=== PATIENT | male | born 1945 | race Caucasian/White ===

== ENCOUNTER 2020-12-01 04:24 | Outpatient (CLI) | payer OTHER | END 2020-12-01 04:25 | disposition home or self-care (01) | LOC: PPH VACUNA 04:24 | PROVIDERS: ATTEND Emergency Medicine Pediatric Emergency Medicine | DX: Z23 Encounter for immunization (principal) ==

== ENCOUNTER 2021-06-21 08:00 | Outpatient (CLI) | payer OTHER | END 2021-06-21 08:30 | disposition home or self-care (01) | LOC: PPH VACUNA 08:00 | DX: Z23 Encounter for immunization (principal) ==

== ENCOUNTER 2021-12-18 12:38 | Outpatient (CLI) | payer OTHER | END 2021-12-18 12:39 | disposition home or self-care (01) | LOC: RAD 12:38 | DX: I11.9 Hypertensive heart disease without heart failure (principal); I70.0 Atherosclerosis of aorta; I20.0 Unstable angina ==

== ENCOUNTER 2022-01-23 08:00 | Outpatient (CLI) | payer OTHER | END 2022-01-23 08:30 | disposition home or self-care (01) | LOC: PPH VACUNA 08:00 | PROVIDERS: ATTEND Emergency Medicine Pediatric Emergency Medicine | DX: Z23 Encounter for immunization (principal) ==

== ENCOUNTER 2022-07-09 08:21 | Outpatient (CLI) | payer OTHER | END 2022-07-09 08:31 | disposition home or self-care (01) | LOC: PPH VACUNA 08:21 | PROVIDERS: ATTEND Emergency Medicine Pediatric Emergency Medicine | DX: Z23 Encounter for immunization (principal) ==

== ENCOUNTER 2022-08-03 07:55 | Outpatient (CLI) | payer OTHER ==
[2022-08-03] MEDS ORDERED: ATENOL PO (09:59)
[2022-08-03] MEDS ORDERED: COZAAR25 MG PO (10:00)
[2022-08-03] MEDS ORDERED: ADULT LOW DOSE81 M1 PO (10:00)
[2022-08-03] MEDS ORDERED: FENO PO (10:01)
[2022-08-03] MEDS ORDERED: [UNRECOGNIZED DRUG - OTHER] PO (10:02)
[2022-08-03] MEDS ORDERED: WELLBUTR PO (10:03)
[2022-08-03] MEDS ORDERED: [UNRECOGNIZED DRUG - OTHER] PO (10:03)
[2022-08-03] MEDS ORDERED: PEPCID AC20 MG PO (10:04)
== END 2022-08-03 08:00 | disposition home or self-care (01) ==
LOC: NUCLEAR 07:55
PROVIDERS: ATTEND Internal Medicine Cardiovascular Disease
DX: I25.2 Old myocardial infarction (principal)

== ENCOUNTER → 2022-08-03 08:00 | Outpatient (CLI) | payer OTHER ==
[~2022-08-03] VITALS: Ht 172.7 cm; Wt 79.8 kg
[~2022-08-03 08:00] MED LIST: ADULT LOW DOSE81 M1 PO; ATENOL PO; COZAAR25 MG PO; FENO PO; PEPCID AC20 MG PO; WELLBUTR PO; [UNRECOGNIZED DRUG - OTHER] PO; [UNRECOGNIZED DRUG - OTHER] PO
== END | disposition home or self-care (01) ==
LOC: LAB 08:00 → ADM 08:15 → CIR.AMB 08-09 08:15 → EDSTATUS 08-09 08:15
PROVIDERS: ATTEND Specialist
DX: K40.91 Unilateral inguinal hernia, without obstruction or gangrene, recurrent (principal); Z11.52 Encounter for screening for COVID-19; U07.1 COVID-19; B34.1 Enterovirus infection, unspecified

== ENCOUNTER 2023-03-05 | Outpatient (CLI) | payer OTHER | END 2023-03-05 00:15 | disposition home or self-care (01) | LOC: PPH VACUNA | PROVIDERS: ATTEND Emergency Medicine Pediatric Emergency Medicine | DX: Z23 Encounter for immunization (principal) ==